=== PATIENT | male | born 1965 | race Caucasian/White ===

== ENCOUNTER 2020-01-24 06:33 | Emergency (ER) | payer OTHER ==
[~2020-01-24] VITALS: Ht 180.3 cm; Wt 98.9 kg
[~2020-01-24 06:33] MED LIST: ATRIPLA TABLET1 EACH PO
--- OUTSIDE RECORDS SUMMARY | 2020-01-24 06:36 | XMS ---
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 E.DBlanca VISIT COUNT (12 MO.) 1 COREY Rocha TOTAL 1 NOTE: Visits indicate total known visits. ED/UCC VISIT TRACKING (12 MO.) 01/24/2020 06:34 [facility]ll[facility] [place] TYPE: Emergency COMPLAINT: - FLANK PAIN INPATIENT VISIT TRACKING (12 MO.) No inpatient visits to display in this time frame [email or web address]
[2020-01-24] MEDS ORDERED: BIKTARVY 50-201 EACH PO (06:49)
[2020-01-24] MEDS ORDERED: LIPITOR20 MG PO (06:50)
[2020-01-24] MEDS ORDERED: ONDANSETRON ODT8 MG PO (09:05)
[2020-01-24] MEDS ORDERED: FLOMAX0.4 MG PO (09:05)
[2020-01-24] MEDS ORDERED: NORCO 7.5-3251 EACH PO (09:05)
== END 2020-01-24 09:50 | disposition home or self-care (01) ==
LOC: ED 06:33
DX: N13.2 Hydronephrosis with renal and ureteral calculous obstruction (principal); F17.200 Nicotine dependence, unspecified, uncomplicated; Z88.0 Allergy status to penicillin; Z88.1 Allergy status to other antibiotic agents; Z88.8 Allergy status to other drugs, medicaments and biological substances; Z88.2 Allergy status to sulfonamides; Z79.899 Other long term (current) drug therapy
CPT/HCPCS: 74176; 80053; 81001; 85025; 96361; 96374; 96375; 99284-25; 99406; A9270; J1885; J2405; J7030

== ENCOUNTER 2021-04-11 09:02 | Emergency (ER) | payer OTHER ==
[~2021-04-11] VITALS: Ht 180.3 cm; Wt 98.9 kg
[~2021-04-11 09:02] MED LIST changes: +BIKTARVY 50-201 EACH PO; +FLOMAX0.4 MG PO; +LIPITOR20 MG PO; +NORCO 7.5-3251 EACH PO; +ONDANSETRON ODT8 MG PO
[2021-04-11] MEDS ORDERED: ATORVASTATIN CA20 MG PO ×2 (09:37)
[2021-04-11] MEDS ORDERED: NORTRIPTYLINE H25 MG PO (09:38)
[2021-04-11] MEDS ORDERED: VENTOLIN HFA18 GM INH (09:39)
[2021-04-11] MEDS ORDERED: ULTRAM50 MG PO (09:39)
[2021-04-11] MEDS ORDERED: FLUTICASONE PRO16 GM NAS (09:39)
[2021-04-11] MEDS ORDERED: GLUCOPHAGE500 MG PO ×3 (13:37→19:21)
== END 2021-04-11 13:58 | disposition home or self-care (01) ==
LOC: ED 09:02
DX: E11.9 Type 2 diabetes mellitus without complications (principal); B20 Human immunodeficiency virus [HIV] disease; F17.200 Nicotine dependence, unspecified, uncomplicated; Z88.0 Allergy status to penicillin; Z88.1 Allergy status to other antibiotic agents; Z88.8 Allergy status to other drugs, medicaments and biological substances; Z88.2 Allergy status to sulfonamides; Z79.899 Other long term (current) drug therapy
CPT/HCPCS: 80053; 81001; 85025; 96374; 96375; 99284-25; J1815; J1885; J2405; J7030

== ENCOUNTER 2021-04-11 19:05 | Emergency (ER) | payer OTHER ==
[~2021-04-11] VITALS: Ht 180.3 cm; Wt 94.3 kg
[~2021-04-11 19:05] MED LIST changes: +ATORVASTATIN CA20 MG PO; +FLUTICASONE PRO16 GM NAS; +GLUCOPHAGE500 MG PO; +NORTRIPTYLINE H25 MG PO; +ULTRAM50 MG PO; +VENTOLIN HFA18 GM INH
--- OUTSIDE RECORDS SUMMARY | 2021-04-11 19:08 | XMS ---
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 E[facility] (12 [address] [facility] NOTE: Visits indicate total known visits. ED/UCC VISIT TRACKING (12 MO.) 04/11/2021 19:06 [facility] [place] TYPE: Emergency COMPLAINT: - HIGH BLOOD SUGAR 04/11/2021 09:03 [facility]ll[facility] [place] TYPE: Emergency COMPLAINT: - LEG CRAMPING,DEHYDRATED,FATIGUED,FREQ URINATE INPATIENT VISIT TRACKING (12 MO.) No inpatient visits to display in this time frame [id number]
[2021-04-11] MEDS ORDERED: GLUCOPHAGE500 MG PO ×2 (19:21)
== END 2021-04-11 22:22 | disposition home or self-care (01) ==
LOC: ED 19:05
DX: E11.65 Type 2 diabetes mellitus with hyperglycemia (principal); B20 Human immunodeficiency virus [HIV] disease; F17.200 Nicotine dependence, unspecified, uncomplicated; Z88.0 Allergy status to penicillin; Z88.1 Allergy status to other antibiotic agents; Z88.2 Allergy status to sulfonamides; Z79.84 Long term (current) use of oral hypoglycemic drugs; Z79.899 Other long term (current) drug therapy; Z79.891 Long term (current) use of opiate analgesic
CPT/HCPCS: 80053; 81001; 82010; 82803; 85025; 99284; J7121

== ENCOUNTER 2024-07-10 15:31 | Emergency (ER) | payer OTHER ==
[~2024-07-10] VITALS: Ht 180.3 cm; Wt 81.9 kg
[2024-07-10] MEDS ORDERED: PROPRANOLOL HCL10 MG PO (15:42)
[2024-07-10] MEDS ORDERED: PREGABALIN50 MG PO (15:43)
[2024-07-10] MEDS ORDERED: KETOROLAC TROMETHAMINE 60 MG/2 ML VIAL IM ONE (15:45)
[2024-07-10] MEDS ORDERED: PERCOCET 5-3251 EACH PO (16:30)
[2024-07-10 16:45] VITALS: BP 162/96
== END 2024-07-10 16:44 | disposition home or self-care (01) ==
LOC: ED 15:31
DX: S89.91XA Unspecified injury of right lower leg, initial encounter (principal); E11.9 Type 2 diabetes mellitus without complications; M17.11 Unilateral primary osteoarthritis, right knee; F17.200 Nicotine dependence, unspecified, uncomplicated; X50.0XXA Overexertion from strenuous movement or load, initial encounter; Z88.0 Allergy status to penicillin; Z88.2 Allergy status to sulfonamides; Z88.1 Allergy status to other antibiotic agents; Z79.84 Long term (current) use of oral hypoglycemic drugs; Z79.899 Other long term (current) drug therapy
CPT/HCPCS: 73560; 96372; 99283; J1885

== ENCOUNTER 2025-04-03 12:14 | Emergency (ER) | payer OTHER ==
[~2025-04-03] VITALS: Ht 180.3 cm; Wt 86.0 kg
[~2025-04-03 12:14] MED LIST changes: +PERCOCET 5-3251 EACH PO; +PREGABALIN50 MG PO; +PROPRANOLOL HCL10 MG PO
[2025-04-03] MEDS ORDERED: ATORVASTATIN CA20 MG PO (12:59)
[2025-04-03] MEDS ORDERED: CARBIDOPA-LEVO1 EAC1 PO (12:59)
[2025-04-03] MEDS ORDERED: METFORMIN HCL500 M1 PO (12:59)
[2025-04-03] MEDS ORDERED: TRAZODONE HCL50 MG PO (13:00)
[2025-04-03 14:58] VITALS: BP 25/95
== END 2025-04-03 14:59 | disposition home or self-care (01) ==
LOC: ED 12:14
DX: M79.661 Pain in right lower leg (principal); M79.662 Pain in left lower leg; B20 Human immunodeficiency virus [HIV] disease; E11.9 Type 2 diabetes mellitus without complications; F17.200 Nicotine dependence, unspecified, uncomplicated; Z88.0 Allergy status to penicillin; Z88.1 Allergy status to other antibiotic agents; Z88.2 Allergy status to sulfonamides; Z79.84 Long term (current) use of oral hypoglycemic drugs; Z79.899 Other long term (current) drug therapy
CPT/HCPCS: 93970; 99283-25